=== PATIENT | male | born 1955 | race Caucasian/White ===

== ENCOUNTER 2020-10-21 09:42 | Day surgery (SDC) | payer OTHER, SELFPAY ==
[~2020-10-21] VITALS: Ht 170.2 cm; Wt 83.9 kg
[~2020-10-21 09:42] MED LIST: CEFAZOLIN SOD 1 GM in D5W 50 ML IV ONE; PRAV40TA PO; TAMS0.4C96 PO
[2020-10-21] MEDS ORDERED: ONDANSETRON HCL 4 MG/2 ML VIAL IVP ONE (13:30)
[2020-10-21] MEDS ORDERED: PROPOFOL 200MG/ 20ML VIAL (DIPRIVAN) IV ONE (13:30)
[2020-10-21] MEDS ORDERED: LR 500 ML IV.SOLN IV ONE (13:30)
[2020-10-21] MEDS ORDERED: SUGAMMADEX SODIUM 200 MG/2 ML VIAL IV ONE (13:30)
[2020-10-21] MEDS ORDERED: ROCURONIUM BROMIDE 10 MG/ML (ZEMURON) IV ONE (13:30)
[2020-10-21] MEDS ORDERED: MIDAZOLAM HCL 5 MG/5 ML VIAL IVP ONE (13:30)
[2020-10-21] MEDS ORDERED: BUPIVACAINE /PF 0.25% 30 ML VIAL INJ ONE (13:30)
[2020-10-21] MEDS ORDERED: fentaNYL CITRATE/PF 100 MCG/2 ML AMP IVP ONE (13:30)
[2020-10-21] MEDS ORDERED: SEVOFLURANE 15 MIN GAS INH ONE (13:30)
[2020-10-21] MEDS ORDERED: DEXAMETHASONE SOD PHOSPHATE 10 MG/ML VIAL IVP ONE (13:30)
[2020-10-21] MEDS ORDERED: ONDANSETRON HCL 4 MG/2 ML VIAL IVP PRN (14:30)
[2020-10-21] MEDS ORDERED: LR 1,000 ML IV SCH (14:30)
[2020-10-21] MEDS ORDERED: hydrALAZINE HCL 20 MG/ML VIAL IVP PRN (14:30)
[2020-10-21] MEDS ORDERED: METOCLOPRAMIDE HCL 10 MG/2 ML VIAL IVP PRN (14:30)
[2020-10-21] MEDS ORDERED: MIDAZOLAM HCL 2 MG/2 ML VIAL (VERSED) IVP PRN (14:30)
[2020-10-21] MEDS ORDERED: LABETALOL 100 MG/ 20ML VIAL IVP PRN (14:30)
[2020-10-21] MEDS ORDERED: HYDROmorphone 1 MG/ML INJ. CARTRIDGE IVP PRN ×3 (14:30→14:45)
[2020-10-21] MEDS ORDERED: MEPERIDINE HCL/PF 25 MG/ML DISP.SYRIN IVP PRN (14:30)
[2020-10-21] MEDS ORDERED: HYDROcodone/ACETAMIN 5-325 MG TAB (NORCO/ VICODIN) PO PRN ×2 (14:45)
[2020-10-21] MEDS ORDERED: D5/0.45 NS 1,000 ML IV SCH (14:45)
[2020-10-21 16:20] VITALS: BP_SYST 129
== END 2020-10-21 16:35 | disposition home or self-care (01) ==
LOC: SDS 09:42 → SMU 09:43 → SDS 16:35
PROVIDERS: ATTEND Colon & Rectal Surgery
DX: R22.2 Localized swelling, mass and lump, trunk (principal); D17.1 Benign lipomatous neoplasm of skin and subcutaneous tissue of trunk; I25.10 Atherosclerotic heart disease of native coronary artery without angina pectoris; E78.5 Hyperlipidemia, unspecified; G47.00 Insomnia, unspecified; E66.01 Morbid (severe) obesity due to excess calories; G47.33 Obstructive sleep apnea (adult) (pediatric); M19.011 Primary osteoarthritis, right shoulder; M17.0 Bilateral primary osteoarthritis of knee; Z96.653 Presence of artificial knee joint, bilateral; Z20.822 Contact with and (suspected) exposure to COVID-19; Z79.899 Other long term (current) drug therapy
CPT/HCPCS: 13101; 13102; 21933; 88304; C9399; J0690; J1100; J2250; J2405; J2704; J3010; J3490; J7060; U0003; J7120

== ENCOUNTER 2022-06-22 10:43 | Day surgery (SDC) | payer OTHER ==
[~2022-06-22] VITALS: Ht 172.7 cm; Wt 77.1 kg
[2022-06-22] MEDS ORDERED: KETOROLAC TROMETHAMINE 30 MG VIAL ONE (13:50)
[2022-06-22] MEDS ORDERED: SUCCINYLCHOLINE CHLORIDE 20 MG/ML(QUELICIN) ONE (13:50)
[2022-06-22] MEDS ORDERED: NS IRRIG SOLN 1000 ML IR ONE (13:50)
[2022-06-22] MEDS ORDERED: LR 1,000 ML IV.SOLN IV ONE (13:50)
[2022-06-22] MEDS ORDERED: ROCURONIUM BROMIDE 10 MG/ML (ZEMURON) ONE (13:50)
[2022-06-22] MEDS ORDERED: ISOFLURANE 15 MIN GAS INH ONE (13:50)
[2022-06-22] MEDS ORDERED: PROPOFOL 200MG/ 20ML VIAL (DIPRIVAN) IV ONE (13:50)
[2022-06-22] MEDS ORDERED: SUGAMMADEX SODIUM 200 MG/2 ML VIAL IV ONE (13:50)
[2022-06-22] MEDS ORDERED: WATER FOR IRRIGATION,STERILE 1,000 ML IRRIG.SOLN IR ONE (13:50)
[2022-06-22] MEDS ORDERED: ONDANSETRON HCL 4 MG/2 ML VIAL ONE (13:50)
[2022-06-22] MEDS ORDERED: fentaNYL CITRATE/PF 100 MCG/2 ML AMP ONE (13:50)
[2022-06-22] MEDS ORDERED: BUPIVACAINE /PF 0.25% 30 ML VIAL INJ ONE (13:50)
[2022-06-22] MEDS ORDERED: DEXAMETHASONE SOD PHOSPHATE 4 MG/ML VIAL ONE (13:50)
[2022-06-22] MEDS ORDERED: ONDANSETRON HCL 4 MG/2 ML VIAL IVP PRN (15:00)
[2022-06-22] MEDS ORDERED: METOCLOPRAMIDE HCL 10 MG/2 ML VIAL IVP PRN (15:00)
[2022-06-22] MEDS ORDERED: HYDROmorphone 1 MG/ML INJ. CARTRIDGE IVP PRN (15:00)
[2022-06-22] MEDS ORDERED: MIDAZOLAM HCL 5 MG/5 ML VIAL IVP PRN (15:00)
[2022-06-22] MEDS ORDERED: D5/0.45 NS 1,000 ML IV SCH (15:30)
[2022-06-22] MEDS ORDERED: HYDROcodone/ACETAMIN 5-325 MG TAB (NORCO/ VICODIN) PO PRN (15:30)
[2022-06-22 17:31] VITALS: BP_SYST 130
== END 2022-06-22 17:45 | disposition home or self-care (01) ==
LOC: SDS 10:43 → SMU 10:44 → SDS 17:45
PROVIDERS: ATTEND Colon & Rectal Surgery
DX: K40.00 Bilateral inguinal hernia, with obstruction, without gangrene, not specified as recurrent (principal); E78.5 Hyperlipidemia, unspecified; I25.10 Atherosclerotic heart disease of native coronary artery without angina pectoris; G47.33 Obstructive sleep apnea (adult) (pediatric); Z85.21 Personal history of malignant neoplasm of larynx; Z79.82 Long term (current) use of aspirin; Z79.899 Other long term (current) drug therapy
CPT/HCPCS: 87081; 49507; 49505; C1781 ×2; J3490 ×2; J0690; J1100; J1885; J2405; J2704; J0330; J3010; J7060; J7120